=== PATIENT | female | born 2000 | race Caucasian/White ===

== ENCOUNTER → 2018-04-05 14:26 | Outpatient (CLI) | payer OTHER, SELFPAY ==
[2018-04-05 15:31] LABS: Basophils % 0.5 % (0.1-2.0); Eosinophils # 0.7 K/mm3 (0.0-0.4); Eosinophils % 8.2 % (0.1-12.0); Hematocrit 35.1 % (37.0-47.0); Hemoglobin 11.5 g/dL (12.2-16.2); Lymphocytes # 1.6 K/mm3 (0.7-4.5); Lymphocytes % 17.2 K/mm3 (10-50); Mean Corpuscular HGB Conc 32.8 g/dL (31.8-35.4); Mean Corpuscular Hemoglobin 28.6 pg (27.0-31.2); Mean Corpuscular Volume 87.1 fl (81-99); Mean Platelet Volume 7.2 fl (7.4-10.4); Monocytes # 0.4 K/mm3 (0.1-1.0); Monocytes % 4.5 % (1.7-9.3); Neutrophils # 6.3 K/mm3 (1.8-7.8); Neutrophils % 69.7 % (37.0-80.0); Platelet Count 235 K/mm3 (142-424); Red Blood Count 4.04 M/mm3 (4.20-5.40); Red Cell Distribution Width 13.1 % (11.5-17.5)
[2018-04-07 09:19] LABS: Rapid Plasma Reagin Ab Titer Non Reactive (NonRea<1:1)
[2018-04-07 15:55] LABS: HIV Screen 4th Generation wRfx Non Reactive (Non Reactive); Hepatitis B Surface Antigen Negative (Negative); Hepatitis C Antibody <0.1 s/co ratio (0.0-0.9); Rubella Antibodies, IgG 4.57 index (Immune >0.99)
[2018-04-09 06:41] LABS: Neisseria gonorrhoeae, NAA Negative (Negative)
== END ==
PROVIDERS: Visit Provider Obstetrics & Gynecology
DX: Z34.90 Encounter for supervision of normal pregnancy, unspecified, unspecified trimester (principal)
CPT/HCPCS: 36415; 84702; 85025; 86592; 86703; 86762; 86850; 87340; 87380; 87491; 87591; G0432

== ENCOUNTER → 2018-04-16 14:01 | Outpatient (CLI) | payer OTHER, SELFPAY ==
--- NOTE | 2018-04-16 14:03 | US_ITS ---
US OB transvaginal HISTORY: ITS.REASON: US OB Dates ORDERING PHYSICIAN: Gregoria Lin MD PATIENT AGE: 18 years COMPARISON: None FINDINGS: An intrauterine gestational sac is present with a pole with a crown-rump length of 2.96cm correlating to gestational age of 9w6d. heart tones are present with an FHR of 164 bpm's. Yolk sac is noted. The amnion and chorion have not yet fused. Adnexa: 15 mm right corpus luteum. IMPRESSION: Live intrauterine gestation at 9 weeks 6 days as described above. Estimated due date by Ultrasound is 11/13/2018
== END ==
PROVIDERS: Visit Provider Obstetrics & Gynecology
DX: O26.841 Uterine size-date discrepancy, first trimester (principal)
CPT/HCPCS: 76817

== ENCOUNTER → 2018-06-30 13:01 | Outpatient (CLI) | payer OTHER, SELFPAY ==
--- NOTE | 2018-06-30 13:03 | US_ITS ---
US OB /maternal detail: INDICATION: ITS.REASON: US OB Complete ORDERING PHYSICIAN: Gregoria Lin MD PATIENT AGE: 18 years TECHNIQUE: ultrasound transabdominal scanning. COMPARISON: No previous relevant studies. FINDINGS: Single viable intrauterine gestation. Breech position. Placenta: Anterior High placenta grade 1. There is average amount fluid. The cervix appears satisfactory. Closed and measuring 4 cm in length. Complete survey performed and was unremarkable on the submitted images as in PACS. No discrete anomalies identified on survey imaging by technologist. Active fetus. Three-vessel cord with satisfactory umbilical cord insertion. 4- chamber heart noted. Survey of brain & ventricles unremarkable. Face and neck survey unremarkable. Diaphragm and chest views unremarkable. Abdomen: Both kidneys noted and unremarkable. Stomach noted and satisfactory. Spine: Survey of the spine satisfactory with no anomalies identified nor imaged. Both arms and legs noted. Amniotic Fluid: Adequate. Maternal adnexa: No significant findings. Measurements: Average ultrasound age 20w3d. Gestational Age 20w1d. Estimated due date by ultrasound age 0611/14/2018. Estimated weight 365 grams. BPD = 20w1d OFD = 20w6d HC = 19w6d AC = 20w4d FL = 21w0d Growth Percentile= 72% Heart Rate = 146 Cerebellum = 20w4d Humerus = 20w4d HC/AC is 1.12 (1.09-1.26). CI is 75% (70-86%). FL/BPD is 75%. FL/AC is 23%. IMPRESSION: There is a single live fetus which is in breech presentation with an average ultrasound age of 20 weeks and 3 days. heart body motion noted. No obvious anomalies. All foramina correlate. Please see above for details
== END ==
PROVIDERS: Visit Provider Obstetrics & Gynecology
DX: Z36.0 Encounter for antenatal screening for chromosomal anomalies (principal)
CPT/HCPCS: 76811

== ENCOUNTER → 2018-08-14 11:08 | Outpatient (CLI) | payer OTHER, SELFPAY ==
[2018-08-14 12:14] LABS: Glucose,Fasting 81 mg/dL (60-105)
[2018-08-14 13:11] LABS: Glucose 1 Hour 143 mg/dL (74-106)
== END ==
PROVIDERS: Visit Provider Obstetrics & Gynecology
DX: Z34.90 Encounter for supervision of normal pregnancy, unspecified, unspecified trimester (principal)
CPT/HCPCS: 36415; 82951

== ENCOUNTER 2018-09-02 16:40 | Outpatient (CLI) | payer OTHER, SELFPAY ==
[2018-09-02 16:49] VITALS: BMI 21.3
[2018-09-02 16:57] VITALS: BP 125/60; PULSE 102; RESP 16; TEMP 36.5; O2SAT 95; BMI 21.3
[2018-09-02 17:42] LABS: Basophils % 0.4 % (0.1-2.0); Eosinophils # 0.6 K/mm3 (0.0-0.4); Eosinophils % 5.8 % (0.1-12.0); Hematocrit 33.8 % (37.0-47.0); Hemoglobin 11.7 g/dL (12.2-16.2); Lymphocytes # 1.5 K/mm3 (0.7-4.5); Lymphocytes % 16.1 % (10-50); Mean Corpuscular HGB Conc 34.5 g/dL (31.8-35.4); Mean Corpuscular Hemoglobin 30.8 pg (27.0-31.2); Mean Corpuscular Volume 89.3 fl (81-99); Mean Platelet Volume 7.1 fl (7.4-10.4); Monocytes # 0.5 K/mm3 (0.1-1.0); Monocytes % 5.6 % (1.7-9.3); Neutrophils # 6.9 K/mm3 (1.8-7.8); Neutrophils % 72.1 % (37.0-80.0); Platelet Count 248 K/mm3 (142-424); Red Blood Count 3.79 M/mm3 (4.20-5.40); Red Cell Distribution Width 13.4 % (11.5-17.5); White Blood Count 9.6 K/mm3 (4.5-13.0)
[2018-09-02 17:49] LABS: Alanine Aminotransferase 18 U/L (12-78); Albumin Level 2.9 gm/dL (3.4-5.0); Albumin/Globulin Ratio 0.7 (1.1-1.8); Alkaline Phosphatase 76 U/L (46-116); Anion Gap 11.6 mEq/L (5-15); Aspartate Amino Transferase 16 U/L (15-37); Bilirubin,Total 0.2 mg/dL (0.2-1.0); Blood Urea Nitrogen 9 mg/dL (7-18); Calcium 9.3 mg/dL (8.5-10.1); Carbon Dioxide 26 mmol/L (21.0-32.0); Chloride 105 mmol/L (98-107); Creatinine Clearance Estimated 207 mL/min (50-200); Creatinine,Serum 0.41 mg/dL (0.55-1.02); Estimated Glomerular Filt Rate 198 ml/min (>60); GFR (African American) 239 ML/MIN (>60); Glucose 97 mg/dL (74-106); Potassium 3.6 mmoL/L (3.5-5.1); Sodium 139 mmol/L (136-145); Total Protein,Serum 6.9 gm/dL (6.4-8.2)
[2018-09-02 18:01] LABS: Appearance,Urine CLOUDY (Clear); Bilirubin,Urine Negative (Negative); Blood, Urine Negative (Negative); Color,Urine YELLOW (Yellow); Glucose,Urine (UA) Negative (Negative); Ketones,Urine Negative (Negative); Leukocyte Esterase,Urine TRACE (Negative); Microscopic, Urine URINE MICROSCOPIC (MICROSCOPIC); Nitrate,Urine Negative (Negative); PH,Urine 6.5 (5.0-8.5); Protein,Urine Negative (Negative); Urobilinogen,Urine 0.2 EU/dl (0.2)
[2018-09-02 18:35] LABS: Fetal Fibronectin (Rapid) Negative (Negative)
[2018-09-02 18:45] LABS: Bacteria,Urine 3+ /lpf
== END 2018-09-02 19:45 | disposition home or self-care (01) ==
LOC: OBOUT 16:45 → OB 16:47
PROVIDERS: PCP Obstetrics & Gynecology; Visit Provider Obstetrics & Gynecology
DX: Z3A.29 29 weeks gestation of pregnancy; O26.899 Other specified pregnancy related conditions, unspecified trimester; R10.9 Unspecified abdominal pain
CPT/HCPCS: 59025; 80053; 81001; 82731; 85025; 87086; 96360; 96361; 96372

== ENCOUNTER 2018-10-11 14:33 | Outpatient (CLI) | payer OTHER, SELFPAY ==
[2018-10-11 14:48] VITALS: BMI 23.6
[2018-10-11 14:57] VITALS: BP 115/70; PULSE 104; RESP 16; TEMP 36.7; O2SAT 98; BMI 23.7
[2018-10-11 14:59] LABS: Microscopic, Urine URINE MICROSCOPIC (MICROSCOPIC)
[2018-10-11 15:00] LABS: Appearance,Urine CLEAR (Clear); Bilirubin,Urine Negative (Negative); Blood, Urine Negative (Negative); Color,Urine YELLOW (Yellow); Glucose,Urine (UA) Negative (Negative); Ketones,Urine Negative (Negative); Leukocyte Esterase,Urine 1+ (Negative); Nitrate,Urine Negative (Negative); Protein,Urine Negative (Negative); Specific Gravity, Urine 1.015 (1.005-1.030); Urobilinogen,Urine 0.2 EU/dl (0.2)
[2018-10-11 15:13] LABS: Amphetamine/Metha Screen,Urine Negative ng/mL (<1000); Barbiturates Screen,Urine Negative ng/mL (<200); Benzodiazepines Screen,Urine Negative ng/mL (<200); Cannabinoid Screen,Urine Negative ng/mL (<50); Cocaine Screen,Urine Negative ng/mL (<300); Methadone Screen,Urine Negative ng/mL (<300); Opiate Screen,Urine Negative ng/mL (<300); Phencyclidine Screen,Urine Negative ng/mL (<25)
[2018-10-11 15:49] LABS: RBC,Urine Occasional #/hpf (0-3); WBC,Urine 20-50 #/hpf (0-3)
[2018-10-11 15:50] LABS: Bacteria,Urine 2+ /lpf
== END 2018-10-11 17:45 | disposition home or self-care (01) ==
LOC: OBOUT 14:34 → OB 14:34
PROVIDERS: Visit Provider Obstetrics & Gynecology
DX: O26.893 Other specified pregnancy related conditions, third trimester (principal); Z3A.34 34 weeks gestation of pregnancy; R25.2 Cramp and spasm
CPT/HCPCS: 59025; 80305; 81001; 87086; 96360; 96367

== ENCOUNTER → 2018-10-13 16:41 | Outpatient (CLI) | payer OTHER, SELFPAY | PROVIDERS: Visit Provider Nurse Practitioner Obstetrics & Gynecology | DX: Z34.90 Encounter for supervision of normal pregnancy, unspecified, unspecified trimester (principal) | CPT/HCPCS: 86403 ==

== ENCOUNTER → 2018-10-26 13:34 | Outpatient (CLI) | payer OTHER, SELFPAY ==
--- NOTE | 2018-10-26 13:40 | US_ITS ---
US OB follow up: Indication: Small for gestational age ITS.REASON: US OB Growth MARILEE- SGA ORDERING PHYSICIAN: Gregoria Lin MD PATIENT AGE: 18 years FINDINGS: There is a single live fetus which is in cephalic presentation. The following parameters are obtained: Average ultrasound age is 37w4d. Estimated due date by ultrasound is 11/12/2018. Estimated weight is 3000 grams is 47th percentile BPD: 38w2d OFD: OFD HC: 39w1d AC: 36w0d FL: 36w5d heart rate: 158 bpm. HC/AC: 1.06 (0.92-1.05) Cephalic index: 78%(70-86%) FL/BPD: 76%(71-87%) FL/AC: 22%(20-24%) Amniotic fluid index: 9 cm Qualitative AFV: 2 breathing movements: 2 Gross body movements: 2 Tone: 2 Biophysical profile score: 8/8 Doppler evaluation of the umbilical artery: SD ratio: SD ratio Resistive index: Resistive index No obvious anomalies evident. Placenta: Anterior GR 2 Cervix: Appears closed and measures 3 cm IMPRESSION: There is a single live fetus which is in cephalic presentation with an average ultrasound age of 37 weeks and 4 days. Estimated weight is 3000 g which is 47th percentile. The HC/AC is slightly elevated at 1.06 Biophysical profile is 8/8. Amniotic fluid index at lower limits of normal at 9 cm
== END ==
PROVIDERS: Visit Provider Obstetrics & Gynecology
DX: O36.5990 Maternal care for other known or suspected poor fetal growth, unspecified trimester, not applicable or unspecified (principal)
CPT/HCPCS: 76816

== ENCOUNTER 2018-11-09 11:47 | Inpatient (IN) | payer OTHER, SELFPAY ==
[2018-11-09 11:14] VITALS: BP 125/82; PULSE 105; RESP 16; O2SAT 94; BMI 24.7
[2018-11-09 11:29] LABS: Microscopic, Urine URINE MICROSCOPIC (MICROSCOPIC)
[2018-11-09 11:40] LABS: Appearance,Urine CLEAR (Clear); Bilirubin,Urine Negative (Negative); Blood, Urine Negative (Negative); Color,Urine YELLOW (Yellow); Glucose,Urine (UA) Negative (Negative); Ketones,Urine Negative (Negative); Leukocyte Esterase,Urine TRACE (Negative); Nitrate,Urine Negative (Negative); PH,Urine 6.5 (5.0-8.5); Protein,Urine Negative (Negative); Specific Gravity, Urine 1.025 (1.005-1.030); Urobilinogen,Urine 0.2 EU/dl (0.2)
[2018-11-09 11:45] LABS: Amphetamine/Metha Screen,Urine Negative ng/mL (<1000); Barbiturates Screen,Urine Negative ng/mL (<200); Benzodiazepines Screen,Urine Negative ng/mL (<200); Cannabinoid Screen,Urine Negative ng/mL (<50); Cocaine Screen,Urine Negative ng/mL (<300); Methadone Screen,Urine Negative ng/mL (<300); Opiate Screen,Urine Negative ng/mL (<300); Phencyclidine Screen,Urine Negative ng/mL (<25)
[2018-11-09 12:11] LABS: Bacteria,Urine 1+ /lpf; WBC,Urine Occasional #/hpf (0-3)
[2018-11-09 14:58] LABS: Basophils % 0.2 % (0.1-2.0); Eosinophils # 0.6 K/mm3 (0.0-0.4); Eosinophils % 4.6 % (0.1-12.0); Hematocrit 36.6 % (37.0-47.0); Hemoglobin 12.7 g/dL (12.2-16.2); Lymphocytes # 1.9 K/mm3 (0.7-4.5); Mean Corpuscular HGB Conc 34.6 g/dL (31.8-35.4); Mean Corpuscular Hemoglobin 31.9 pg (27.0-31.2); Mean Corpuscular Volume 92.3 fl (81-99); Mean Platelet Volume 7.8 fl (7.4-10.4); Monocytes # 0.8 K/mm3 (0.1-1.0); Neutrophils # 9.3 K/mm3 (1.8-7.8); Neutrophils % 74.1 % (37.0-80.0); Platelet Count 224 K/mm3 (142-424); Red Blood Count 3.97 M/mm3 (4.20-5.40); White Blood Count 12.5 K/mm3 (4.5-13.0)
[2018-11-09 20:09] VITALS: BP 117/64; PULSE 115; RESP 20; TEMP 36.9; O2SAT 96
--- NOTE | 2018-11-10 07:14 | HMH.ANESCL ---
[facility] Anesthesia Checklist - Patient Identification Patient Identification: Arm Band, Verbal (Name & ) - Structural Data Admitted From: Home Planned Operative Procedure/s: Labor epidural Consent for Planned Operative Procedure(s) Verified: Yes Verified Documents: Surgical Consent, History and Physical - NPO Status Verified Time NPO: 00:00 - Chart Verification Results Verified: CBC - Additional verifications Patient : Yes Anesthesia Reactions: No - Airway Assessment C-Spine Mobility Assessed: Yes TMJ Mobility Assessed: Yes Dentition: Good Dentition - Neurological Assessment Level of Consciousness: Awake Hx Seizures: No Numbness or tingling in extremities: No - Anesthesia Plan Anesthesia Risk discussed: Yes Anesthesia Plan: Verified ASA Class: II Anesthesia Type: Epidural [facility] History I have reviewed the patient's past medical history: Yes Medical History: Denies:: Anxiety, Diabetes Mellitus Type 1, Diabetes Mellitus Type 2, Hypertension, Migraine *Have you ever received a pneumonia vaccine?: No *Have you received a flu vaccine this season?: No Other Surgeries: Yes: No Previous Surgery. No: Amputation: No Fractures: No - *Social History Smoking Status: Never smoker Alcohol Intake: never Substance Use Type: marijuana, former substance user *Occupational Status:: unemployed *Travel in the last 8 weeks: None - Psychiatric History Pschychiatric History:: Denies:: Anxiety Family Hx:: Hypertension, Hyperlipidemia Para: 0
--- NOTE | 2018-11-10 08:51 | HMH.LABNOT ---
Labor Note - Subjective: Date: 11/10/18 Time: 08:51 regular contraction Comment:: G1 @ 39 wks scheduled for IOL 11/10 due to social reasons but came into L&D saleem on 11/09 and was admitted for latent labor. Given one dose of cytotec and cervidil placed on the evening of 11/09. Active labor progressed with only 2 doses of prostaglandins and cervix complete with BBOW. Comfortable with epidural. - Objective: NST:: Reactive Contractions:: every 2-3 minutes Cervical Dilation:: 9-10 Effacement:: 100% Membranes: artificially ruptured Comment:: clear fluid - Fetus: Monitoring?: Yes monitoring type:: External - Assessment: Labor progressing?: Yes Cephalopelvic disproportion?: No Patient Problems: All Active Problems (Updated 11/03/18 @ 17:21 by Gregoria Lin MD) Obeso-hom-zxneh fetus (Acute) Impaired glucose tolerance (Acute) Abdominal pain during (Acute) Body mass index (BMI) of 19 or less in adult (Acute) Mild tetrahydrocannabinol (THC) abuse (Acute) Positive urine drug screen (Acute) Anemia affecting (Acute) (Acute) - Plan: Continue to labor down?: Yes
--- NOTE | 2018-11-10 10:55 | HMH.DN ---
- Delivery Note Delivery Date:: 11/10/18 Delivery Time:: 10:07 Anesthesia Type: Epidural Was labor medically induced?: Yes Induction method: per misoprostol protocol Gestational age (weeks): 39 Infant delivered prior to 39 weeks?: No Infant Gender: Female at 1 minute: 8 at 5 minutes: 9 LAC or MLE?: LAC Delivery Procedure:: Spontaneous vaginal delivery of liveborn female infant over intact perineum. Delivery uncomplicated Nuchal cord x1 reduced on perineum; no shoulder dystocia with delivery placed in JOSUE with mother immediately after umbilical cord clamped/cut, with standard nursing assessment performed Apgars: 8 & 9 Placenta spontaneously expressed and examined; noted to be complete/intact. Vulva, vagina, and cervix inspected; 2nd degree laceration repaired with vicryl in layers EBL: 300 cc All sponge/needle/instrument counts correct at conclusion of procedure Disposition: Mom/baby stable to recovery in LDRP Laceration:: vaginal Placental Delivery Description: Spontaneous
--- NOTE | 2018-11-10 17:01 | SW/DCPLANNER ---
RECEIVED REFERRAL FOR A POSITIVE [facility] ON 07/06 ON THIS PATIENT THAT PRESENTED INTO THE HOSPITAL FOR DELIVERY... PATIENT STATED SHE MOVED TO [place] R/T FAMILY ISSUES... SHE DELIVERED A LIVE BORN FEMALE AND NAMED HER LAVERN, SHE HAS NOT PEED YET TO GET A URINE BUT PATIENT WAS NEGATIVE AND ACCORDING TO NURSING SHE WENT TO ALL HER VISITS AND SHE AND INFANTS FATHER ARE BOTH VERY APPROPRIATE WITH INFANT. SHE HAS CHOSEN TO [facility] AND STATED SHE IS LOOKING FOR A DOCTOR TO ACCEPT TO BE CLOSER SINCE THEY HAVE MOVED TO [place].. I EXPLAINED TO HER THAT SHE HAS TO HAVE A FOLLOW UP APPT WITH A DOCTOR BEFORE WE CAN DISCHARGE HER IN YOUR CARE.. SHE HAS ELECTED TO [facility] AND STATED SHE DOES NOT GET WIC. I ASKED HER ABOUT THE HANDS PROGRAM AND EXPLAINED TO HER THAT SHE NEEDED TO MAKE CONTACT WITH THE [facility] DEPT. SHE STATED SHE HAS EVERYTHING SHE NEEDS TO TAKE HER BABY HOME IE., CARSEAT, BED, DIAPERS, CLOTHES AND STATED SHE IS GOING TO CHECK ABOUT WIC.. THE PLAN IS FOR HER TO DISCHARGE ON THURSDAY, WILL GET A UDS ON INFANT AND SEE IF IT SHOULD SHOW ANY DRUGS, SINCE SHE HAS A HISTORY OF MARIJUANA USE I WILL CALL IT IN BUT NOT VERY OPTIMISTIC THEY WILL TAKE IT...WILL FOLLOW UP IN THE AM...
[2018-11-10 20:10] VITALS: BP 149/65; PULSE 123; RESP 18; TEMP 36.3; O2SAT 95
[2018-11-11 07:08] LABS: Hematocrit 31.5 % (37.0-47.0); Hemoglobin 10.8 g/dL (12.2-16.2)
--- NOTE | 2018-11-11 12:44 | SW/DCPLANNER ---
Addendum entered by Chapis Woo 11/19/18 13:39: Infant cord screen is NEGATIVE. Original Note: DID MAKE CONTACT WITH [facility] ON THIS PATIENT SINCE SHE DID HAVE A + FOR PAIGE BACK IN MARCH AND I SPOKE WITH DAVID AND ID# [id number] WAS GIVEN.. HE DIDN'T THINK IT MET CRITERIA BUT SAID HE WOULD SPEAK WITH THE CHECK SERVICES CLERK.. MY BIGGEST CONCERNS ARE SHE IS JUST GOING TO LIVE WITH FRIENDS.. I SHARED THAT WITH DAVID THE REGISTERED HEALTH NURSE... DISCHARGE IS PLANNED FOR [facility] (THURSDAY) I HAVE ASKED FOR HER TO SECURE AN APPT WITH A DOCTOR FOR A CHECKUP PRIOR TO BEING ABLE TO TAKE INFANT HOME.
[2018-11-11 19:47] VITALS: BP 126/71; PULSE 90; RESP 16; TEMP 36.6; O2SAT 98
--- NOTE | 2018-11-12 14:29 | P.PN_ITS ---
Internal Medicine - PN: Subj *Date: 11/11/18 *Time: 10:24 Interval history: PPD #1 No complaints Ambulating and voiding without difficulty Lochia WNL Exam Vital signs and Labs for Last 24 Hours: Temp Pulse Resp BP Pulse Ox 97.9 F 90 16 126/71 98 11/11/18 19:47 11/11/18 19:47 11/11/18 19:47 11/11/18 19:47 11/11/18 19:47 I & O for Last 24 hours: Intake & Output 11/10/18 11/11/18 11/12/18 11/13/18 11:59 11:59 11:59 11:59 Output Total 300 / 300 Balance -300 / -300 Narrative: CONSTITUTIONAL: no acute distress HEENT: mucous membranes moist PULMONARY: breathing unlabored without audible wheezes CV: no tachycardia or visible JVD; normal LE peripheral pulses ABD: soft, NT/ND, no guarding : fundus firm at/below umbilicus SKIN: no visible rash or lesions EXT: 1+ edema LEs NEURO: alert/oriented, no altered mental status PSYCH: appropriate mood and demeanor without visible anxiety/depression Assessment and Plan (1) Vaginal delivery Current visit: Yes Status: Acute Category: Medical Code(s): O80 - Encounter for full-term uncomplicated delivery (2) Fprtv-ufc-czxym fetus Current visit: No Status: Acute Category: Medical (3) Impaired glucose tolerance Problem details: 1 hr GCT 143; 3 hr GTT ordered Current visit: No Status: Acute Category: Medical Code(s): R73.02 - Impaired glucose tolerance (oral) (4) Mild tetrahydrocannabinol (THC) abuse Current visit: No Status: Acute Category: Medical Code(s): F12.10 - Cannabis abuse, uncomplicated (5) Positive urine drug screen Problem details: THC Current visit: No Status: Acute Category: Medical Code(s): R82.5 - Elevated urine levels of drugs, medicaments and biological substances (6) Anemia affecting Problem details: Hgb 11.5 Current visit: No Status: Acute Category: M edical Code(s): O99.019 - Anemia complicating , unspecified trimester - Assessment and plan all Dx Assessment and Plan for all problems:: Routine care Continue PNV with FeSO4 Anticipate discharge home tomorrow
--- NOTE | 2018-11-12 14:31 | HMH.DCSUM ---
General - General Admission date:: 11/09/18 Discharge date: 11/12/18 HPI HPI: PPD #2 No complaints Ambulating, voiding without difficulty Regular diet Lochia WNL Hospital Course Hospital Course: Admitted in latent labor, progressed with augmentation to normal course uneventful Discharge home on PPD #2 Objective Vital signs: Temp Pulse Resp BP Pulse Ox 97.9 F 90 16 126/71 98 11/11/18 19:47 11/11/18 19:47 11/11/18 19:47 11/11/18 19:47 11/11/18 19:47 Narrative: CONSTITUTIONAL: no acute distress HEENT: mucous membranes moist PULMONARY: breathing unlabored without audible wheezes CV: no tachycardia or visible JVD; normal LE peripheral pulses ABD: soft, NT/ND, no guarding : fundus firm at/below umbilicus SKIN: no visible rash or lesions EXT: 1+ edema LEs NEURO: alert/oriented, no altered mental status PSYCH: appropriate mood and demeanor without visible anxiety/depression DS: Diagnosis - Discharge Diagnosis (1) Vaginal delivery Status: Acute (2) Qmrtr-hwm-vxmkk fetus Status: Acute (3) Impaired glucose tolerance Status: Acute Problem details: 1 hr GCT 143; 3 hr GTT ordered (4) Mild tetrahydrocannabinol (THC) abuse Status: Acute (5) Positive urine drug screen Status: Acute Problem details: THC (6) Anemia affecting Status: Acute Problem details: Hgb 11.5 Discharge Plan - Patient Discharge Instructions ACTIVITY: Continue current activity DIET: regular diet Additional Instructions: NO DRIVING FOR 2 WEEKS NO HEAVY LIFTING OR STRENUOUS ACTIVITY NOTHING IN VAGINA FOR [address] FOLLOW UP WITH DR. CLARK ON DECEMBER 22, 2018 AT 3:30PM Patient Instructions: Labor and Delivery, Vaginal , DI for Depression, [facility] Post Discharge Instructions - Follow up Plan Disposition: Home, Self-Snf Medications: Home Medications Medication Instructions Recorded Confirmed Type 1 tab PO DAILY 04/05/18 11/09/18 History vitamin,calcium,efzhipec-zfan-azenc acid tablet Prescriptions/Medication Reconciliation: New Ibuprofen [Motrin 400mg tablet] 800 mg PO Q6HP PRN tablet PRN Reason: Mild To Moderate Pain Witch Paula [Tucks 40 Pads/Box] 1 each TP NEEDED PRN box PRN Reason: Hemorrhoids Continued vitamin,calcium,ruziougr-wqlp-lwbvw acid tablet 1 tab PO DAILY
--- NOTE | 2018-11-12 14:36 | P.DS_ITS ---
General - General Admission date:: 11/09/18 Discharge date: 11/12/18 HPI HPI: PPD #2 No complaints Ambulating, voiding without difficulty Regular diet Lochia WNL Hospital Course Hospital Course: Admitted in latent labor, progressed with augmentation to normal course uneventful Discharge home on PPD #2 Objective Vital signs: Temp Pulse Resp BP Pulse Ox 97.9 F 90 16 126/71 98 11/11/18 19:47 11/11/18 19:47 11/11/18 19:47 11/11/18 19:47 11/11/18 19:47 Narrative: CONSTITUTIONAL: no acute distress HEENT: mucous membranes moist PULMONARY: breathing unlabored without audible wheezes CV: no tachycardia or visible JVD; normal LE peripheral pulses ABD: soft, NT/ND, no guarding : fundus firm at/below umbilicus SKIN: no visible rash or lesions EXT: 1+ edema LEs NEURO: alert/oriented, no altered mental status PSYCH: appropriate mood and demeanor without visible anxiety/depression DS: Diagnosis - Discharge Diagnosis (1) Vaginal delivery Status: Acute (2) Lqmjb-mbb-eoyhh fetus Status: Acute (3) Impaired glucose tolerance Status: Acute Problem details: 1 hr GCT 143; 3 hr GTT ordered (4) Mild tetrahydrocannabinol (THC) abuse Status: Acute (5) Positive urine drug screen Status: Acute Problem details: THC (6) Anemia affecting Status: Acute Problem details: Hgb 11.5 Discharge Plan - Patient Discharge Instructions ACTIVITY: Continue current activity DIET: regular diet Additional Instructions: NO DRIVING FOR 2 WEEKS NO HEAVY LIFTING OR STRENUOUS ACTIVITY NOTHING IN VAGINA FOR [address] FOLLOW UP WITH DR. CLARK ON DECEMBER 22, 2018 AT 3:30PM Patient Instructions: Labor and Delivery, Vaginal , DI for Depression, [facility] Post Discharge Instructions - Follow up Plan Disposition: Home, Self-Long-Term Medications: Home Medications Medication Instructions Recorded Confirmed Type 1 tab PO DAILY 04/05/18 11/09/18 History vitamin,calcium,xnpbleux-osqm-yhtop acid tablet Prescriptions/Medication Reconciliation: New Ibuprofen [Motrin 400mg tablet] 800 mg PO Q6HP PRN tablet PRN Reason: Mild To Moderate Pain Witch Paula [Tucks 40 Pads/Box] 1 each TP NEEDED PRN box PRN Reason: Hemorrhoids Continued vitamin,calcium,sdoykqcu-rrrs-qifdt acid tablet 1 tab PO DAILY
== END 2018-11-12 15:35 | disposition home or self-care (01) | DRG 807 ==
LOC: OBOUT 11:48
PROVIDERS: Admitting Provider Obstetrics & Gynecology; Visit Provider Obstetrics & Gynecology
DX: O70.1 Second degree perineal laceration during delivery (principal); Z37.0 Single live birth; Z3A.39 39 weeks gestation of pregnancy; O69.81X0 Labor and delivery complicated by cord around neck, without compression, not applicable or unspecified
CPT/HCPCS: 59409; 36415; 59025; 80305; 81001; 85014; 85018; 85025; 86850; J0595

== ENCOUNTER → 2019-07-27 14:05 | Outpatient (CLI) | payer OTHER, SELFPAY ==
--- NOTE | 2019-07-27 14:20 | US_ITS ---
PROCEDURE: US OB <= 14 WEEKS FETUS CLINICAL INDICATION: US OB Dates COMPARISON: [facility] US OB follow up from 10/26/2018 FINDINGS: There is a single live fetus noted which is in cephalic presentation. Average ultrasound age is 16 weeks 2 days. The following parameters are obtained BPD 16 weeks 1 day, OFD 16 weeks 3 days, HC 16 weeks 0 days, AC 16 weeks 5 days, FL 16 weeks 1 day. The placenta is anterior in implantation. Probable Runnels Davidson contraction along the lower uterine segment posteriorly. The heart tones are present with an FHR of 147bpm. Yolk sac is noted. IMPRESSION: Live IUP at 16 weeks 2 days. This does not constitute a complete anatomy exam. Estimated due date by Ultrasound is 01/09/2020 Dictated by: Remington Stevens MD 07/27/2019 17:49 Electronically signed by Remington Stevens MD in [place] 07/27/2019 17:49
[2019-07-27 15:14] LABS: Basophils # 0.1 K/mm3 (0-0.2); Basophils % 0.5 % (0.1-2.0); Eosinophils # 0.6 K/mm3 (0.0-0.4); Hematocrit 37.4 % (37.0-47.0); Hemoglobin 12.6 g/dL (12.2-16.2); Lymphocytes % 20.8 % (10-50); Mean Corpuscular HGB Conc 33.8 g/dL (31.8-35.4); Mean Corpuscular Hemoglobin 29.2 pg (27.0-31.2); Mean Corpuscular Volume 86.4 fl (81-99); Mean Platelet Volume 7.6 fl (7.4-10.4); Monocytes # 0.3 K/mm3 (0.1-1.0); Monocytes % 3.4 % (1.7-9.3); Neutrophils # 6.7 K/mm3 (1.8-7.8); Neutrophils % 69.3 % (37.0-80.0); Platelet Count 274 K/mm3 (142-424); Red Blood Count 4.32 M/mm3 (4.20-5.40); Red Cell Distribution Width 13.2 % (11.5-17.5); White Blood Count 9.6 K/mm3 (4.8-10.8)
[2019-08-17 15:49] LABS: Hepatitis C Antibody 0.2
[2019-08-17 15:53] LABS: HIV Screen 4th Generation wRfx NON REACTIVE; Hepatitis B Surface Antigen Negative; Rapid Plasma Reagin Ab Titer NON REACTIVE
[2019-08-17 15:55] LABS: Rubella Antibodies, IgG 5.05
== END ==
PROVIDERS: Visit Provider Obstetrics & Gynecology
DX: Z34.90 Encounter for supervision of normal pregnancy, unspecified, unspecified trimester (principal)
CPT/HCPCS: 36415; 76801; 84702; 85025; 86592; 86703; 86762; 86850; 87340; 87380; G0432

== ENCOUNTER → 2019-07-27 14:41 | Outpatient (CLI) | payer OTHER, SELFPAY | PROVIDERS: Visit Provider Obstetrics & Gynecology | DX: Z34.90 Encounter for supervision of normal pregnancy, unspecified, unspecified trimester (principal) | CPT/HCPCS: 36415; 84702; 85025; 86592; 86703; 86762; 86850; 87340; 87380; G0432 ==

== ENCOUNTER → 2019-09-27 16:27 | Outpatient (CLI) | payer OTHER, SELFPAY ==
[2019-09-27 22:22] LABS: Barbiturates Screen,Urine Negative ng/ml (<200)
[2019-09-27 22:23] LABS: Benzodiazepines Screen,Urine Negative ng/ml (<200)
[2019-09-27 22:24] LABS: Amphetamine/Metha Screen,Urine Negative ng/ml (<1000); Cannabinoid Screen,Urine Negative ng/ml (<50)
[2019-09-27 22:25] LABS: Cocaine Screen,Urine Negative ng/ml (<300)
[2019-09-27 22:26] LABS: Methadone Screen,Urine Negative ng/ml (<300); Opiate Screen,Urine Negative ng/ml (<300)
[2019-09-27 22:27] LABS: Phencyclidine Screen,Urine Negative ng/ml (<25)
[2019-09-30 11:27] LABS: Neisseria gonorrhoeae, NAA Negative (Negative)
== END ==
PROVIDERS: Visit Provider Obstetrics & Gynecology
DX: Z34.90 Encounter for supervision of normal pregnancy, unspecified, unspecified trimester (principal)
CPT/HCPCS: 80305; 87491; 87591

== ENCOUNTER → 2019-10-05 08:45 | Outpatient (CLI) | payer OTHER, SELFPAY ==
--- NOTE | 2019-10-05 08:45 | US_ITS ---
PROCEDURE: US OB /MATERNAL DETAIL CLINICAL INDICATION: Anatomy exam COMPARISON: US OB <= 14 WEEKS FETUS from 07/27/2019 FINDINGS: There is a single live fetus present which is in cephalic presentation. heart body motion is noted. The placenta is anterior and is grade 1-2. The cervix is closed and measures 4 cm transabdominal. There is some minimal calcification along the superficial surface of the placenta. Complete survey performed and was unremarkable on the submitted images as in PACS. No discrete anomalies identified on survey imaging by technologist. Active fetus. Three-vessel cord with satisfactory umbilical cord insertion. 4- chamber heart noted. Survey of brain & ventricles Unremarkable. Face and neck survey unremarkable. Diaphragm and chest views unremarkable. Abdomen: Both kidneys noted and unremarkable. Stomach noted and satisfactory. Spine: Survey of the spine satisfactory with no anomalies identified nor imaged. Both arms and legs noted. Amniotic Fluid: Adequate. Maternal adnexa: No significant findings. Measurements: Average ultrasound age 26weeks 1day. Gestational Age 26 weeks 2 days Estimated due date by ultrasound age 0701/10/2020. Estimated weight 914g BPD = 25weeks 5days OFD = 25 weeks 6 days HC = 25weeks 3days AC = 26weeks 3days FL = 26weeks 4days Growth Percentile= 38% Heart Rate = 138bpm Cerebellum = 26weeks 6days Humerus = 26weeks 1day HC/AC is 1.06 CI is 0.76 FL/BPD is 0.77 FL/AC is 0.22 IMPRESSION: There is a single live fetus which is in cephalic presentation with an average ultrasound age of 26 weeks and 1 day. All parameters correlate. No obvious abnormalities. Please see above for detail There is some minimal calcification within the placenta. Dictated by: Remington Stevens MD 10/05/2019 16:13 Electronically signed by Remington Stevens MD in [facility] 10/05/2019 16:13
== END ==
PROVIDERS: PCP Obstetrics & Gynecology; Visit Provider Obstetrics & Gynecology
DX: Z34.90 Encounter for supervision of normal pregnancy, unspecified, unspecified trimester (principal)
CPT/HCPCS: 76811

== ENCOUNTER → 2019-12-22 17:26 | Outpatient (CLI) | payer OTHER, SELFPAY | PROVIDERS: Visit Provider Obstetrics & Gynecology | DX: Z34.90 Encounter for supervision of normal pregnancy, unspecified, unspecified trimester (principal) | CPT/HCPCS: 86403 ==

== ENCOUNTER 2020-01-04 14:46 | Inpatient (IN) | payer OTHER, SELFPAY ==
[2020-01-04 15:01] VITALS: BMI 25.8
[2020-01-04 15:20] VITALS: BP 108/70; PULSE 96; RESP 18; TEMP 37.1; O2SAT 98; BMI 27.4
[2020-01-04 16:06] LABS: Microscopic, Urine URINE MICROSCOPIC (MICROSCOPIC)
[2020-01-04 16:15] LABS: Appearance,Urine SL CLOUDY (Clear); Bilirubin,Urine Negative (Negative); Blood, Urine Negative (Negative); Color,Urine DK YELLOW (Yellow); Glucose,Urine (UA) Negative (Negative); Ketones,Urine Negative (Negative); Leukocyte Esterase,Urine 2+ (Negative); Nitrate,Urine Negative (Negative); PH,Urine 6.5 (5.0-8.5); Protein,Urine Negative (Negative); Specific Gravity, Urine >= 1.030 (1.005-1.030); Urobilinogen,Urine 0.2 EU/dl (0.2)
[2020-01-04 16:17] LABS: Basophils % 0.4 % (0.1-2.0); Eosinophils # 0.3 K/mm3 (0.0-0.4); Eosinophils % 2.9 % (0.1-12.0); Hemoglobin 12.1 g/dL (12.2-16.2); Lymphocytes % 19.9 % (10-50); Mean Corpuscular HGB Conc 34.5 g/dL (31.8-35.4); Mean Corpuscular Hemoglobin 29.6 pg (27.0-31.2); Mean Corpuscular Volume 85.9 fl (81-99); Mean Platelet Volume 7.6 fl (7.4-10.4); Monocytes # 0.6 K/mm3 (0.1-1.0); Monocytes % 5.5 % (1.7-9.3); Neutrophils # 7.2 K/mm3 (1.8-7.8); Neutrophils % 71.4 % (37.0-80.0); Platelet Count 225 K/mm3 (142-424); Red Blood Count 4.08 M/mm3 (4.20-5.40); Red Cell Distribution Width 14.1 % (11.5-17.5); White Blood Count 10.1 K/mm3 (4.8-10.8)
[2020-01-04 16:22] LABS: Bacteria,Urine 1+ /lpf; Squamous Epithelial Cell,Urine 20-50 #/hpf (0-5)
[2020-01-04 16:24] LABS: Amphetamine/Metha Screen,Urine Negative ng/ml (<1000); Benzodiazepines Screen,Urine Negative ng/ml (<200)
[2020-01-04 16:25] LABS: Barbiturates Screen,Urine Negative ng/ml (<200)
[2020-01-04 16:26] LABS: Cocaine Screen,Urine Negative ng/ml (<300)
[2020-01-04 16:27] LABS: Opiate Screen,Urine Negative ng/ml (<300)
[2020-01-04 16:28] LABS: Phencyclidine Screen,Urine Negative ng/ml (<25)
[2020-01-04 16:37] LABS: Cannabinoid Screen,Urine Negative ng/ml (<50)
[2020-01-04 16:38] LABS: Methadone Screen,Urine Negative ng/ml (<300)
[2020-01-04 17:02] LABS: Coronavirus 19 IgG Antibody Positive (Negative)
[2020-01-04 17:03] LABS: Coronavirus 19 IgM Antibody Positive (Negative)
[2020-01-04 17:36] LABS: Adenovirus,PCR Not Detected (NotDetected); Bordetella Pertussis Not Detected (NotDetected); Chlamydophila Pneumoniae, PCR Not Detected (NotDetected); Coronavirus 19, PCR Not Detected (NotDetected); Coronavirus 229E Not Detected (NotDetected); Coronavirus NL63 Not Detected (NotDetected); Coronavirus OC43 Not Detected (NotDetected); Coronovirus HKU1,PCR Not Detected (NotDetected); Human Metapneumovirus Not Detected (NotDetected); Influenza A, PCR Not Detected (NotDetected); Influenza AH1, 2009 Not Detected (NotDetected); Influenza AH1, PCR Not Detected (NotDetected); Influenza AH3,PCR Not Detected (NotDetected); Influenza B, PCR Not Detected (NotDetected); Mycoplasma Pneumoniae, PCR Not Detected (NotDected); Parainfluenza 1, PCR Not Detected (NotDetected); Parainfluenza 2, PCR Not Detected (NotDetected); Parainfluenza 3, PCR Not Detected (NotDetected); Parainfluenza 4, PCR Not Detected (NotDetected); Respiratory Syncytial Virus Not Detected (NotDetected); Rhinovirus/Enterovirus Not Detected (NotDetected)
--- NOTE | 2020-01-05 11:08 | P.PN_ITS ---
[facility] Anesthesia Checklist - Patient Identification Patient Identification: Arm Band - Structural Data Admitted From: Inpatient Planned Operative Procedure/s: labor epidural Consent for Planned Operative Procedure(s) Verified: Yes Verified Documents: Surgical Consent, History and Physical - NPO Status Verified Time NPO: 00:00 - Additional verifications Anesthesia Reactions: No - Airway Assessment C-Spine Mobility Assessed: Yes TMJ Mobility Assessed: Yes Dentition: Good Dentition - Neurological Assessment Level of Consciousness: Awake, Alert - Anesthesia Plan Anesthesia Risk discussed: Yes Anesthesia Plan: Verified ASA Class: II Anesthesia Type: Epidural [facility] History I have reviewed the patient's past medical history: Yes Medical History: Denies:: Anxiety, Diabetes Mellitus Type 1, Diabetes Mellitus Type 2, Hyper tension, Migraine, Seizures *Have you ever received a pneumonia vaccine?: No *Have you received a flu vaccine this season?: No Anesthesia experience/problems:: nac Other Surgeries: Yes: No Previous Surgery. No: Amputation: No Fractures: No - *Social History Smoking Status: Never smoker Alcohol Intake: never Substance Use Type: marijuana, former substance user *Occupational Status:: unemployed *Travel in the last 8 weeks: None - Psychiatric History Pschychiatric History:: Denies:: Anxiety Family Hx:: Hypertension, Hyperlipidemia Para: 1
--- NOTE | 2020-01-05 13:59 | HMH.LABNOT ---
Labor Note - Subjective: Date: 01/05/20 Time: 10:59 Comment:: @ 39 wks, elective induction at term No complaints Covid IgM and IgG positive, but nasal swab negative NST 130's, normal variability, reactive AROM clear amniotic fluid; IUPC and FSE placed without difficulty or complication - Objective: Cervical Dilation:: 4-5 Effacement:: 75% Station: -1 - Fetus: monitoring type:: Internal - Assessment: Labor progressing?: Yes Patient Problems: All Active Problems 39 weeks gestation of (Acute) Insufficient care (Acute) Short interval between pregnancies affecting , antepartum (Acute) (Acute) Body mass index (BMI) of 19 or less in adult (Acute) Mild tetrahydrocannabinol (THC) abuse (Acute) Positive urine drug screen (Acute) - Plan: Comment:: Continue pitocin augmentation Continuous monitoring Anticipate
--- NOTE | 2020-01-05 14:28 | HMH.DN ---
- Delivery Note Delivery Date:: 01/05/20 Delivery Time:: 13:41 Anesthesia Type: Epidural Was labor medically induced?: Yes Induction method: per pitocin protocol Gestational age (weeks): 39 delivered prior to 39 weeks?: No Gender: Female Delivery Procedure:: Spontaneous vaginal delivery of liveborn female over intact perineum. Delivery uncomplicated No nuchal cord or shoulder dystocia with delivery Infant placed in JOSUE with mother immediately after umbilical cord clamped/cut, with standard nursing assessment performed Placenta spontaneously expressed and examined; noted to be complete/intact. Vulva, vagina, and cervix inspected; First degree perineal laceration repaired with 2-0 vicryl EBL: 300 cc All sponge/needle/instrument counts correct at conclusion of procedure Disposition: Mom/baby stable to recovery in LDRP Placental Delivery Description: Spontaneous
[2020-01-05 17:15] VITALS: BP 117/84; PULSE 105; RESP 18; TEMP 37.1; O2SAT 97
[2020-01-06 06:55] LABS: Hematocrit 32.9 % (37.0-47.0); Hemoglobin 11.2 g/dL (12.2-16.2)
[2020-01-06 08:00] VITALS: BP 132/56; PULSE 81; RESP 20; TEMP 37.1; O2SAT 97
--- NOTE | 2020-01-06 12:56 | HMH.ACPN2 ---
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 Exam Vital signs and Labs for Last 24 Hours: Temp Pulse Resp BP Pulse Ox 98.8 F 81 20 132/56 L 97 01/06/20 08:00 01/06/20 08:00 01/06/20 08:00 01/06/20 08:00 01/06/20 08:00 Laboratory Results - last 24 hr 01/06/20 06:30: Hgb 11.2 L, Hct 32.9 L I & O for Last 24 hours: Intake & Output 01/04/20 01/05/20 01/06/20 01/07/20 11:59 11:59 11:59 11:59 Output Total 600 / 600 Balance -600 / -600 Weight 170 lb Narrative: CONSTITUTIONAL: no acute distress HEENT: mucous membranes moist PULMONARY: breathing unlabored without audible wheezes CV: no tachycardia or visible JVD; normal LE peripheral pulses ABD: soft, NT/ND, no guarding : fundus firm at/below umbilicus SKIN: no visible rash or lesions EXT: 1+ edema LEs NEURO: alert/oriented, no altered mental status PSYCH: appropriate mood and demeanor without visible anxiety/depression Assessment and Plan (1) 39 weeks gestation of Current visit: Yes Status: Acute Category: Medical Code(s): Z3A.39 - 39 weeks gestation of (2) Short interval between pregnancies affecting , antepartum Current visit: Yes Status: Acute Category: Medical Code(s): O09.899 - Supervision of other high risk pregnancies, unspecified trimester (3) Insufficient care Current visit: Yes Status: Acute Category: Medical Code(s): O09.30 - Supervision of with insufficient care, unspecified trimester (4) Normal vaginal delivery Current visit: Yes Status: Acute Category: Medical Code(s): O80 - Encounter for full-term uncomplicated delivery - Assessment and plan all Dx Assessment and Plan for all problems:: Routine care Possible discharge home today if infant cleared for discharge Continue PNV with FeSO4
--- NOTE | 2020-01-06 14:39 | SW/DCPLANNER ---
RECEIVED REFERRAL FOR THIS PATIENT STATING PATIENT HAD LATE CARE WITH ONLY 4 VISITS... BOTH INFANT AND PATIENT WERE NEGATIVE FOR ANY DRUGS... MOM HAS BEEN MOST APPROPRIATE WITH INFANT AND HAS EVERYTHING SHE NEEDS TO TAKE HER BABY HOME.. SHE AND INFANT WILL DISCHARGE HOME LATER IN THE DAY, IF INFANTS CORD SCREEN SHOULD COME BACK POSITIVE, IT WILL BE REPORTED FOR INVESTIGATION.. PATIENT CHOSE [facility] FOR THE INFANTS DOCTOR....
--- NOTE | 2020-01-06 15:28 | HMH.DCSUM ---
General - General Admission date:: 01/04/20 HPI HPI: Elective IOL at 39+ wks Uncomplicated course uneventful Discharged home on PPD #1 in stable condition Ambulating and voiding without difficulty Tolerating regular diet Declines pain meds Hospital Course Rhogam Administration: Not Indicated Objective Vital signs: Temp Pulse Resp BP Pulse Ox 98.8 F 81 20 132/56 L 97 01/06/20 08:00 01/06/20 08:00 01/06/20 08:00 01/06/20 08:00 01/06/20 08:00 Narrative: CONSTITUTIONAL: no acute distress HEENT: mucous membranes moist PULMONARY: breathing unlabored without audible wheezes CV: no tachycardia or visible JVD; normal LE peripheral pulses ABD: soft, NT/ND, no guarding : fundus firm at/below umbilicus SKIN: no visible rash or lesions EXT: 1+ edema LEs NEURO: alert/oriented, no altered mental status PSYCH: appropriate mood and demeanor without visible anxiety/depression Results Labs on day of discharge: Labs from last 24 hours 01/06/20 06:30 Hgb 11.2 L Hct 32.9 L DS: Diagnosis - Discharge Diagnosis (1) 39 weeks gestation of Status: Acute (2) Short interval between pregnancies affecting , antepartum Status: Acute (3) Insufficient care Status: Acute (4) Normal vaginal delivery Status: Acute Discharge Plan - Patient Discharge Instructions ACTIVITY: Continue current activity DIET: regular diet Additional Instructions: No heavy lifting, no strenuous activity and nothing in the vagina for [address] CLARK THURSDAY FOR F/U APPT Patient Instructions: Depression, Hemorrhage, DI for Labor and Delivery, Vaginal , DI for Pre-eclampsia, Preventing the Spread of Coronavirus Discharge Instructions - Follow up Plan Follow up with: Gregoria Clark MD [Staff Physician] - Disposition: Home, Self-Half-Way Medications: Home Medications Medication Instructions Recorded Confirmed Type prenat.vits,darrell,[id number] 1 tab PO DAILY 04/05/18 01/05/20 History Prescriptions/Medication Reconciliation: New Acetaminophen [Acetaminophen 325mg tab] 650 mg PO Q4HP PRN tablet PRN Reason: Mild Pain Ibuprofen [Motrin 400mg tablet] 800 mg PO Q6HP PRN tablet PRN Reason: Mild To Moderate Pain Continued prenat.vits,darrell,[id number] 1 tab PO DAILY - Problem Reconciliation Problems Reviewed?: Yes
== END 2020-01-06 18:09 | disposition home or self-care (01) | DRG 807 ==
PROVIDERS: Admitting Provider Obstetrics & Gynecology; Visit Provider Obstetrics & Gynecology
DX: O70.0 First degree perineal laceration during delivery (principal); Z37.0 Single live birth; Z3A.39 39 weeks gestation of pregnancy
CPT/HCPCS: 59409; 36415; 59025; 80305; 81001; 85014; 85018; 85025; 86328; 86850; 87086; 87581; 87633; 87798; 94761; C1758

== ENCOUNTER 2020-11-03 20:33 | Emergency (ER) | payer OTHER, SELFPAY ==
[2020-11-03] VITALS (7 sets, daily range): BP systolic 112–129; BP diastolic 62–80; PULSE 81–107; RESP 18–34; TEMP 36.7–36.9; O2SAT 97–99; BMI 16.1
--- NOTE | 2020-11-03 20:23 | ECG_ITS ---
APPROVED REPORT Exam: Resting ECG HR:98 bpm ECG Measurements Heart Rate 98 AXES CO 128 P 89 QRSd 104 QRS 87 QT 372 T -14 QTc 474 Conclusion Normal sinus rhythm Incomplete right bundle branch block Otherwise normal ECG Electronically signed by : Antione Lozano, 11/04/2020 07:08:33
--- NOTE | 2020-11-03 20:35 | XR_ITS ---
PROCEDURE INFORMATION: Exam: XR Chest Exam date and time: 11/03/2020 8:35 PM Age: 20 years old Clinical indication: Cough and shortness of breath; Patient HX: Cough, SOA TECHNIQUE: Imaging protocol: XR of the chest. Views: 2 views. COMPARISON: No relevant prior studies available. FINDINGS: Lungs: Hyperexpansion. No consolidation. Pleural spaces: Unremarkable. No pleural effusion. No pneumothorax. Heart/Mediastinum: Unremarkable. No cardiomegaly. Bones/joints: Unremarkable. IMPRESSION: No acute findings.
[2020-11-03 20:50] LABS: Basophils # 0.1 K/mm3 (0-0.2); Basophils % 0.7 % (0.1-2.0); Eosinophils # 0.9 K/mm3 (0.0-0.4); Eosinophils % 8.1 % (0.1-12.0); Hemoglobin 14.6 g/dL (12.2-16.2); Lymphocytes # 2.5 K/mm3 (0.7-4.5); Lymphocytes % 23.2 % (10-50); Mean Corpuscular HGB Conc 33.1 g/dL (31.8-35.4); Mean Corpuscular Hemoglobin 28.4 pg (27.0-31.2); Mean Corpuscular Volume 85.7 fl (81-99); Mean Platelet Volume 7.4 fl (7.4-10.4); Monocytes # 0.5 K/mm3 (0.1-1.0); Monocytes % 4.6 % (1.7-9.3); Neutrophils % 63.5 % (37.0-80.0); Platelet Count 265 K/mm3 (142-424); Red Blood Count 5.13 M/mm3 (4.20-5.40); Red Cell Distribution Width 12.8 % (11.5-17.5)
[2020-11-03 20:59] LABS: HCG Qualitative, Serum Negative (Negative)
[2020-11-03 21:01] LABS: Alanine Aminotransferase 23 U/L (12-78); Albumin Level 4.8 g/dl (3.5-5.0); Alkaline Phosphatase 84 U/L (38-126); Anion Gap 10.6 mEq/L (5-15); Aspartate Amino Transferase 33 U/L (14-36); Bilirubin,Direct 0.4 mg/dl (0.0-0.4); Bilirubin,Total 0.4 mg/dl (0.2-1.3); Bilirubin,Unconjugated 0.1 mg/dL (0.0-1.1); Blood Urea Nitrogen 12 mg/dl (7-17); Calcium 9.3 mg/dl (8.4-10.2); Carbon Dioxide 29 mmol/L (22.0-30.0); Chloride 106 mmol/L (98-107); Creatinine Clearance Estimated 79 mL/min (50-200); Estimated Glomerular Filt Rate 90 ml/min (>60); GFR (African American) 109 ML/MIN (>60); Glucose 73 mg/dl (74-100); Potassium 3.6 mmoL/L (3.5-5.1); Sodium 142 mmol/L (136-145); Total Protein,Serum 8.4 g/dl (6.3-8.2)
[2020-11-03 21:07] LABS: C-Reactive Protein 8.7 mg/L (0-4)
[2020-11-03 21:15] LABS: Erythrocyte Sedimentation Rate 10 mm/hr (0-20)
[2020-11-03 21:16] LABS: Troponin I < 0.01 ng/ml (0.00-0.034)
--- NOTE | 2020-11-03 21:19 | HMH.EDSOB ---
ED Disposition Clinical Impression: Reactive airway disease Qualifiers: Asthma severity: unspecified severity Asthma persistence: unspecified Asthma complication type: with acute exacerbation Qualified Code(s): J45.901 - Unspecified asthma with (acute) exacerbation Disposition: Home, Self-Care Condition on Discharge: Good Instructions: DI for Shortness of Breath Additional Instructions: use meds and see pcp or dr ware for follow up Prescriptions: predniSONE [Prednisone 20mg Tab] 20 mg PO BID #10 tab Transmission Status: Pending to [facility] Referrals: Provider,Leann, [Primary Care Provider] - Jayy Wrae [Referring] - - Critical Care Critical Care Time: No Attestation: On 11/03/20, the high probability of a clinically significant, sudden or life threatening deterioration of the following system(s) required my full and direct attention, intervention and personal management. The time I documented below is in addition to time spent performing reported procedures but includes the following listed in this critical care notation. Medical Decision Making - Medical Records Medical records reviewed: Yes: I reviewed the patient's medical records. - Justus Inquiry Pt receiving controlled substance: No Vital Signs: 11/03/20 20:34 11/03/20 21:00 11/03/20 21:02 Temperature 98.5 F Temperature Source Oral Pulse Rate 104 H 81 Pulse Rate [Left Radial] 107 H Respiratory Rate 34 H 22 Blood Pressure 122/62 Blood Pressure [Right Arm] 112/65 Blood Pressure Mean 72 Blood Pressure Mean [Right Arm] 80 Blood Pressure Source [Right Arm] Automatic Cuff Blood Pressure Position [Right Arm] Sitting 02 Sat by Pulse Oximetry 97 98 Oxygen Delivery Method Room Air Room Air 11/03/20 21:03 11/03/20 21:30 11/03/20 22:00 Temperature Temperature Source Pulse Rate 81 97 H 89 Pulse Rate [Left Radial] Respiratory Rate 18 18 Blood Pressure 120/71 129/80 Blood Pressure [Right Arm] Blood Pressure Mean 85 Blood Pressure Mean [Right Arm] Blood Pressure Source [Right Arm] Blood Pressure Position [Right Arm] 02 Sat by Pulse Oximetry 97 99 Oxygen Delivery Method Room Air - Lab Data Lab results reviewed: Yes: I reviewed the patient's lab results. Lab Results 11/03/20 20:42: WBC 11.0 H, RBC 5.13, Hgb 14.6, Hct 44.0, MCV 85.7, MCH 28.4, MCHC 33.1, RDW 12.8, Plt Count 265, MPV 7.4, Neut % (Auto) 63.5, Lymph % (Auto) 23.2, Allen % (Auto) 4.6, Eos % (Auto) 8.1, Baso % (Auto) 0.7, Neut # (Auto) 7.0, Lymph # (Auto) 2.5, Allen # (Auto) 0.5, Eos # (Auto) 0.9 H, Baso # (Auto) 0.1, ESR 10 11/03/20 20:42: Sodium 142, Potassium 3.6, Chloride 106, Carbon Dioxide 29, Anion Gap 10.6, BUN 12, Creatinine 0.80, Estimated Creat Clear 79, Estimated GFR 90, Est GFR ( Amer) 109, Glucose 73 L, Calcium 9.3, Total Bilirubin 0.4, Direct Bilirubin 0.4, Conjugated Bilirubin 0.0, Indirect Bilirubin 0.0, Unconjugated Bilirubin 0.1, AST 33, ALT 23, Alkaline Phosphatase 84, Troponin I < 0.01, C-Reactive Protein 8.7 H, Total Protein 8.4 H, Albumin 4.8, Procalcitonin < 0.030 11/03/20 20:42: Serum HCG, Qual Negative Result diagrams: 11/03/20 20:42 11/03/20 20:42 Orders (Tests/Meds): ED MEDICATIONS Generic Name Dose Route Start Last Admin Trade Name Freq PRN Reason Stop Dose Admin Albuterol Sulfate 2 puffs 11/03/20 20:52 Albuterol-Hfa 90mcg/Puff Inhaler 8gm IH 12/03/20 20:51 Q4HP PRN Shortness Of Breath Sodium Chloride 1,000 mls @ 999 mls/hr 11/03/20 20:45 11/03/20 20:49 Sod Chlor 0.9% 1000ml Bag IV 11/03/20 21:45 999 mls/hr .Q1H1M ANNIE Administration Discontinued Medications Generic Name Dose Route Start Last Admin Trade Name Freq PRN Reason Stop Dose Admin Methylprednisolone Sodium Succinate 125 mg 11/03/20 20:35 11/03/20 20:49 Methylprednisolone Sod Succ 125mg Vial IV 11/03/20 20:36 125 mg ONCE ONE Administration Miscellaneous 1 unit
[2020-11-03 21:22] LABS: Procalcitonin < 0.030 ng/mL (0.0-2.0)
== END 2020-11-03 22:44 | disposition home or self-care (01) ==
PROVIDERS: Emergency Provider Emergency Medicine
DX: J45.901 Unspecified asthma with (acute) exacerbation (principal)
CPT/HCPCS: 71046; 80048; 80076; 84145; 84484; 84703; 85025; 85651; 86140; 93005; 96365; 96375; 99282

== ENCOUNTER 2021-02-07 10:10 | Emergency (ER) | payer OTHER, SELFPAY ==
[2021-02-07 12:11] VITALS: BP 105/77; PULSE 78; RESP 16; TEMP 37.3; O2SAT 98; BMI 16.2
--- NOTE | 2021-02-07 12:28 | HMH.EDUTC ---
[facility] [place] Clinical Impression: Encounter for laboratory testing for COVID-19 virus, Viral syndrome Disposition: Home, Self-Care Condition on Discharge: Good Instructions: DI for Viral Syndrome, DI for COVID-19 (Suspected or Confirmed ), Coronavirus Disease 2019, Preventing the Spread of Coronavirus Discharge Instructions Additional Instructions: *Monitor Temp, Over the counter Motrin or Tylenol as directed/as needed Tylenol every 4 hours and Motrin every 6 hours (as long as your family doctor has told you that you can take it) for fever or pain. and straight to ER if unable to lower temp less than 101.0 after medication given *Warm salt water gargles may help to soothe the throat *Throat Lozenges *Warm fluids like tea with honey may help to soothe the throat *Sleep elevated *Humidifier/Vaporizer Bromfed may cause drowsiness. Know how it effects you (your child) before driving, caring for small child, or sending your child to school. Not other antihistamines/allergy medications while taking bromfed Your throat swab was sent for culture. Those results are typically sent to your primary care. Be sure to follow up in 2-3 days with your family doctor/primary care physician if no improvement so they can review those result and treat if necessary. If you don?t have a primary care doctor, I recommend you get one but in the mean time, you will have to return to a walk in clinic Follow up IMMEDIATELY for new or worsening symptoms or no Noticeable improvement over the next 48-72 hours. 911 for difficulty breathing or swallowing You were tested for today for COVID19 your test result should be back in the next 24-48 hours, you may call to the [facility] to see if your test results are back in the next 48 hours [phone] [facility] hours are 9am-9pm You was given a handout with instructions for Self Quarantine and Self isolation for while you wait on test results and what to do if they are positive If you are positive the Health Dept will be contacting you also Make sure to take your Vitamins Vit. C Vit D and Zinc if you can take them Prescriptions: Ondansetron [Zofran 4mg ODT] 4 mg PO TIDP PRN #10 tab PRN Reason: Vomiting Transmission Status: Pending to [facility] Referrals: Provider,Referral, [Primary Care Provider] - As needed Forms: Work/School Release Time of Disposition: 12:44 Medical Decision Making - Justus Inquiry Pt receiving controlled substance: No Justus was queried for this patient: No Vital Signs: 02/07/21 12:11 Temperature 99.2 F Temperature Source Oral Pulse Rate [Right] 78 Respiratory Rate 16 Blood Pressure [Right Arm] 105/77 L Blood Pressure Mean [Right Arm] 86 02 Sat by Pulse Oximetry 98 Oxygen Delivery Method Room Air Orders (Tests/Meds): ORDERS Category Date Time Status Covid-19 Nasal PCR ([facility]) Routine Lab 02/07/21 12:04 Received Medical Decision Narrative: Denies [facility] [place] - General Stated complaint: covid symtoms Time Seen by Provider: 02/07/21 12:28 Mode of Arrival: Family Vehicle Source of Information: Patient Limitations: No Limitations Description of Symptoms (Recalled from Triage Doc. by RN): Patient c/o headache, muscle aches and vomitting since yesterday morning. Patient unsure if she was exposed to COVID. 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
[2021-02-07 12:40] VITALS: BP 111/74; PULSE 65; RESP 18; TEMP 36.8; O2SAT 98
--- NOTE | 2021-02-08 16:19 | PC.NURSE ---
attempted to contact pt to notify of test results, no answer, no voicemail available
--- NOTE | 2021-02-09 11:58 | PC.NURSE ---
relayed positive covid results
== END 2021-02-07 12:53 | disposition home or self-care (01) ==
PROVIDERS: Emergency Provider Nurse Practitioner
DX: U07.1 COVID-19 (principal)
CPT/HCPCS: 99202; G0463; U0003

== ENCOUNTER 2021-04-30 13:19 | Emergency (ER) | payer OTHER, SELFPAY ==
--- NOTE | 2021-04-30 13:49 | HMH.EDUTC ---
[facility] [place] Disposition Clinical Impression: Viral syndrome Sinusitis Qualifiers: Sinusitis location: unspecified location Chronicity: acute Recurrence: non-recurrent Qualified Code(s): J01.90 - Acute sinusitis, unspecified Disposition: Home, Self-Care Condition on Discharge: Good Instructions: DI for Sinusitis, Preventing the Spread of Coronavirus Discharge Instructions, DI for COVID-19 (Suspected or Confirmed ), DI for Viral Syndrome Additional Instructions: Drink plenty of fluids. Take tylenol or ibuprofen for pain or fever. Take the medications as directed. Follow up with your regular doctor. GO TO THE ER FOR ANY WORSENING SYMPTOMS Quarantine until you know the results of your covid-19 test. If it is positive, the health department should call you and give you further instructions about your length of Quarantine and other things. Notify your school or workplace of your results and follow their instructions regarding return to work/school. Prescriptions: Brompheniramine/Pseudoephed/Dm [Bromfed Dm Cough Syrup] 5 ml PO Q6HP PRN #240 ml PRN Reason: Cough Transmission Status: [facility] methylPREDNISolone [Medrol] 4 mg PO DIRECTED 6 Days #21 packet Transmission Status: [facility] to [facility] Azithromycin [Z-Khoa 250mg Tab*] 250 mg PO UD DOSE PK #6 tab Transmission Status: P[facility] to [facility] Referrals: Provider,Referral, [Primary Care Provider] - Forms: Work/School Release Time of Disposition: 14:33 Medical Decision Making - Medical Records Medical records reviewed: No: I reviewed the patient's medical records. - Justus Inquiry Pt receiving controlled substance: No Vital Signs: 04/30/21 13:53 Temperature 98.1 F Temperature Source Oral Pulse Rate [Left] 74 Respiratory Rate 19 Blood Pressure [Right Arm] 109/52 L Blood Pressure Mean [Right Arm] 71 02 Sat by Pulse Oximetry 99 - Lab Data Lab results reviewed: Yes: I reviewed the patient's lab results. Lab Results 04/30/21 13:53: Strep Scn Rapid Clinic Negative Orders (Tests/Meds): ORDERS Category Date Time Status Strep Screen Confirmation Routine Micro 04/30/21 13:53 Received [facility] [place] HPI - General Stated complaint: possible sinus infection Time Seen by Provider: 04/30/21 13:49 - History of Present Illness Provider Complaint: She states that for the past 5 days, she has had worsening sinus and nasal congestion. She has a history of having issues with nasal congestion already. She has saw ENT several times over the past 2 years or so. When she gets sick, she gets very congested in her sinuses. She is also having an cough and a sore throat. - Related Data Previous Rx's Medication Instructions Recorded predniSONE [Prednisone 20mg 20 mg PO BID #10 tab 11/03/20 Tab] Ondansetron [Zofran 4mg ODT] 4 mg PO TIDP PRN #10 tab 02/07/21 Azithromycin [Z-Khoa 250mg Tab*] 250 mg PO UD DOSE PK #6 tab 04/30/21 Brompheniramine/Pseudoephed/Dm 5 ml PO Q6HP PRN #240 ml 04/30/21 [Bromfed Dm Cough Syrup] methylPREDNISolone [Medrol] 4 mg PO DIRECTED 6 Days #21 04/30/21 packet Allergies Allergy/AdvReac Type Severity Reaction Status Date / Time amoxicillin Allergy Verified 10/08/20 15:25 Penicillins Allergy Verified 10/08/20 15:25 [facility] History - Hepatitis A Screen Attestation statement:: This patient has been screened for Hepatitis A risk factors. I have reviewed the patient's past medical history: Yes Medical History: Denies:: Anxiety, Diabetes Mellitus Type 1, Diabetes Mellitus Type 2, Hypertension, Migraine, Seizures Other Surgeries: Yes: No Previous Surgery. No: Amputation: No Fractures: No - Social History Smoking Status: Never smoker Alcohol Intake: never Substance Use Type: marijuana, former substance user Occupational Status: unemployed - Psychiatric History Pschychiatric History:: Denies:: Anxiety Family Hx:: Hyperten
[2021-04-30 13:53] VITALS: BP 109/52; PULSE 74; RESP 19; TEMP 36.7; O2SAT 99; BMI 17.7
[2021-04-30 14:02] LABS: UTC Strep Screen (Rapid) Negative (Negative)
[2021-04-30 14:50] VITALS: BP 109/52; PULSE 74; RESP 19; TEMP 36.7
== END 2021-04-30 14:52 | disposition home or self-care (01) ==
PROVIDERS: Emergency Provider Nurse Practitioner Family
DX: J01.90 Acute sinusitis, unspecified (principal); B34.9 Viral infection, unspecified; Z20.822 Contact with and (suspected) exposure to COVID-19
CPT/HCPCS: 87880; 99202; C9803; G0463; U0003; U0005

== ENCOUNTER 2021-09-22 13:18 | Emergency (ER) | payer OTHER, SELFPAY ==
--- NOTE | 2021-09-22 14:35 | HMH.EDUTC ---
[facility] [place] Dis[place] Clinical Impression: UTI (urinary tract infection) Qualifiers: Urinary tract infection type: acute cystitis Hematuria presence: with hematuria Qualified Code(s): N30.01 - Acute cystitis with hematuria Disposition: Home, Self-Care Condition on Discharge: Good Instructions: Urinary Tract Infection, DI for Urinary Tract Infection (UTI) Additional Instructions: Drink plenty of fluids. Take tylenol or ibuprofen for pain or fever. Take the medications as directed. Follow up with your regular doctor. GO TO THE ER FOR ANY WORSENING SYMPTOMS The pyridium will make your urine turn orange, this is an expected side effect. It will stain your clothes if it comes into contact with them. We will culture the urine. That will tell what bacteria is causing your infection and which antibiotics will treat it best. Sometimes the first antibiotic we prescribe turns out to not work against different bacteria. So, make sure you follow up within 3 days if you are not getting better. Prescriptions: Ondansetron [Zofran 4mg ODT] 4 mg PO Q8HP PRN #20 tab PRN Reason: Nausea Transmission Status: [facility] to [facility] Sulfamethoxazole/Trimethoprim [Bactrim DS tablet] 1 each PO BID 7 Days #14 tab Transmission Status: Pending to [facility] Phenazopyridine HCl [Pyridium 200mg Tablet] 200 pow PO TID #6 tab Transmission Status: Pending to [facility] Referrals: Provider,Referral, [Primary Care Provider] - Forms: Work/School Release Time of Disposition: 15:14 Medical Decision Making - Medical Records Medical records reviewed: No: I reviewed the patient's medical records. - Justus Inquiry Pt receiving controlled substance: No Vital Signs: 09/22/21 14:38 Temperature 98.6 F Temperature Source Oral Pulse Rate [Left] 125 H Respiratory Rate 14 Blood Pressure [Right Arm] 132/74 Blood Pressure Mean [Right Arm] 93 02 Sat by Pulse Oximetry 95 - Lab Data Lab results reviewed: Yes: I reviewed the patient's lab results. Lab Results 09/22/21 14:41: Urine Color [place], Urine Appearance Clear, Urine pH 6.5, Ur Specific [place] 1.020, Urine Protein 2+, Urine Glucose (UA) Trace, Urine Ketones Small, Urine Blood Negative, Urine Nitrate Positive A, Urine Bilirubin 2+ A, Urine Urobilinogen >=8, Ur Leukocyte Esterase Negative, Tst Clinic Negative Orders (Tests/Meds): ORDERS Category Date Time Status Urine Culture Stat Micro 09/22/21 14:32 Received [facility] [place] HPI - General Stated complaint: possible uti, prg symtpoms Time Seen by Provider: 09/22/21 14:35 - History of Present Illness Provider Complaint: She states that for the past 2 days, she has been having low back pain and dysuria. She also would like to have a urine test. She states that her lmp was around September 11, but it was very short and not normal. She denies any abdominal pain. - Related Data Previous Rx's Medication Instructions Recorded predniSONE [Prednisone 20mg 20 mg PO BID #10 tab 11/03/20 Tab] Ondansetron [Zofran 4mg ODT] 4 mg PO TIDP PRN #10 tab 02/07/21 Azithromycin [Z-Khoa 250mg Tab*] 250 mg PO UD DOSE PK #6 tab 04/30/21 Brompheniramine/Pseudoephed/Dm 5 ml PO Q6HP PRN #240 ml 04/30/21 [Bromfed Dm Cough Syrup] methylPREDNISolone [Medrol] 4 mg PO DIRECTED 6 Days #21 04/30/21 packet Ondansetron [Zofran 4mg ODT] 4 mg PO Q8HP PRN #20 tab 09/22/21 Phenazopyridine HCl [Pyridium 200 pow PO TID #6 tab 09/22/21 200mg Tablet] Sulfamethoxazole/Trimethoprim 1 each PO BID 7 Days #14 tab 09/22/21 [Bactrim DS tablet] Allergies Allergy/AdvReac Type Severity Reaction Status Date / Time amoxicillin Allergy Verified 10/08/20 15:25 Penicillins Allergy Verified 10/08/20 15:25 [facility] History - Hepatitis A Screen Attestation statement:: This patient has been screened for Hepatitis A risk factors. I have reviewed the patient's past me
[2021-09-22 14:38] VITALS: BP 132/74; PULSE 125; RESP 14; TEMP 37; O2SAT 95; BMI 17.7
[2021-09-22 14:42] LABS: Apearance,Urine Clear (Clear); Bilirubin,Urine 2+ (Negative); Blood, Urine Negative (Negative); Color,Urine Orange (Yellow); Glucose,Urine (UA) Trace (Negative); Ketones,Urine SMALL (Negative); PH,Urine 6.5 (5.0-8.5); Protein,Urine 2+ (Negative)
[2021-09-22 14:43] LABS: UTC Leukocyte Esterase,Urine Negative (Negative); UTC Nitrate,Urine Positive (Negative); Urobilinogen,Urine >=8 EU/dl (0.2)
[2021-09-22 14:44] LABS: UTC Pregnancy Test, Urine Negative (Negative)
[2021-09-22 15:30] VITALS: BP 132/74; PULSE 125; RESP 14; TEMP 37
== END 2021-09-22 15:31 | disposition home or self-care (01) ==
PROVIDERS: Emergency Provider Nurse Practitioner Family
DX: N30.01 Acute cystitis with hematuria (principal); M54.50 Low back pain, unspecified; R06.00 Dyspnea, unspecified; Z79.51 Long term (current) use of inhaled steroids; Z88.0 Allergy status to penicillin; Z88.1 Allergy status to other antibiotic agents; Z88.3 Allergy status to other anti-infective agents; Z82.49 Family history of ischemic heart disease and other diseases of the circulatory system; Z83.438 Family history of other disorder of lipoprotein metabolism and other lipidemia
CPT/HCPCS: 81003; 81025; 87086; 99213; G0463